=== PATIENT | female | born 1940 | race Caucasian/White ===

== ENCOUNTER 2018-02-21 16:13 | Emergency (ER) | payer SELFPAY ==
[2018-02-21] MEDS ORDERED: traMADol HCl 50 MG TAB ONE (17:20)
--- NOTE | 2018-02-21 17:39 | RAD ---
LEFT HAND THREE VIEWS: 02/21/18 HISTORY: Pain. Injury. COMPARISON: None. 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 No fracture. No cortical irregularity or periosteal reaction. Mild bone demineralization. IMPRESSION: No fracture. POS: [facility]
--- NOTE | 2018-02-21 17:42 | RAD ---
LEFT WRIST THREE VIEWS: 02/21/18 HISTORY: Patient fell. Posttraumatic pain. FINDINGS: Irregularity involving the distal radius suggesting a possible impacted, nondisplaced fracture. No de finite intra-articular extension. There does appear to be soft tissue swelling at the level of the di stal radius. Carpal bones appear to be intact. There is narrowing of the radiocarpal joint space. IMPRESSION: Nondisplaced distal radius fracture. Correlate for point tenderness. POS: [facility]
--- NOTE | 2018-02-21 17:49 | RAD ---
CHEST ONE VIEW RIGHT RIBS GREATER THAN TWO VIEWS 02/21/18 HISTORY: Fall. Trauma. Pain. FINDINGS: RIGHT RIB SERIES: No fracture. No cortical irregularity or periosteal reaction. ONE VIEW CHEST: Normal cardiac silhouette. Pulmonary vessels and hilum are normal. Costophrenic angles are clear. No consolidation or mass. No pneumothorax or osseous abnormalities. Linear density in the left mid lung may represent thickening of the fissure versus an area of subsegmental atelectasis or scar. IMPRESSION: 1. No evidence of a right rib fracture. 2. No acute cardiopulmonary process. POS: [facility]
--- NOTE | 2018-02-21 18:01 | CT ---
CT LUMBAR SPINE WITHOUT CONTRAST: 02/21/18 HISTORY: Fall. Pain. Injury. COMPARISON: None. FINDINGS: Symmetric attenuation of the psoas muscles. No retroperitoneal mass, lymphadenopathy or hematoma. The visualized alimentary canal and solid organs are unremarkable. The visualized bony pelvis is intact. Vacuum joint phenomenon involving the left and right SI joints. There are five lumbar type vertebral bodies. Lumbar spine vertebral body height is maintained. There is no vertebral body fracture. However, there are fractures involving the left and right transverse process at L4. Vacuum disc phenomenon at L4-L5. There is mild facet hypertrophy at L3-L4, L4-L5 and L 5-S1 with vacuum joint phenomenon. No spondylolysis. There is 3.3 mm of anterolisthesis of L4 upon L5 . Limited evaluation of the contents of the central spinal canal or neural foramina due to technique. T12-L1: Mild central canal stenosis secondary to broad based disc bulge. Foramina are patent. L1-L2: Broad based disc bulge, ligamentum flavum thickening and facet hypertrophy results in mild inna tral canal stenosis. Neural foramina are patent bilaterally. L2-L3: Generalized disc bulge with mild central canal stenosis. Neural foramina are patent. L3-L4: Generalized disc bulge, ligamentum flavum thickening and facet hypertrophy result in moderate to severe central canal stenosis. Neural foramina are patent. L4-L5: Vacuum disc phenomenon. Broad based disc bulge, ligamentum flavum thickening and facet hypertr ophy result in severe central canal stenosis. Moderate right foraminal narrowing due to disc material . Left neural foramen is patent. L5-S1: No high grade central canal stenosis or high grade foraminal narrowing. IMPRESSION: 1. No evidence of a vertebral body fracture; however, there are fractures along the left and rig ht transverse processes at L4. 2. Degenerative changes of the lumbar spine as above. Moderate to severe central canal stenosis at L3-L4. Severe central canal stenosis at L4-L5. Moderate right foraminal narrowing at L4-L5. POS: [facility]
== END 2018-02-21 18:03 | disposition home or self-care (01) ==
LOC: NAV ERS 16:13
DX: S52.501A Unspecified fracture of the lower end of right radius, initial encounter for closed fracture (principal); S32.049A Unspecified fracture of fourth lumbar vertebra, initial encounter for closed fracture; Z79.899 Other long term (current) drug therapy; W10.9XXA Fall (on) (from) unspecified stairs and steps, initial encounter
CPT/HCPCS: 72131

== ENCOUNTER 2018-07-05 11:08 | Outpatient (CLI) | payer OTHER ==
--- NOTE | 2018-07-05 13:26 | RAD ---
LEFT WRIST 3 VIEWS: Date: 07/05/18 HISTORY: Left wrist pain. FINDINGS/IMPRESSION: Comparison made with exam of 02/21/18. A negative ulnar variance is present. No acute fracture, dislocation, or bony destruction is identifi ed. Narrowing of the radiocarpal joint space is again seen. If there is tenderness in the anatomic snuffbox and symptoms do not improve, a follow-up exam should be obtained in 7-10 days. POS: [facility]
--- NOTE | 2018-07-05 13:34 | RAD ---
LUMBAR SPINE THREE VIEWS: HISTORY: Low back pain. FINDINGS: No compression fracture is seen. Degenerative changes are present. There is grade 1 anterolisthesis of L4 over L5. POS: [facility]
== END 2018-07-05 11:09 | disposition home or self-care (01) ==
LOC: NAV RAD 11:08
PROVIDERS: ATTEND Family Medicine
DX: S32.009A Unspecified fracture of unspecified lumbar vertebra, initial encounter for closed fracture (principal); M25.532 Pain in left wrist; M25.832 Other specified joint disorders, left wrist
CPT/HCPCS: 72100